=== PATIENT | male | born 1975 | race Caucasian/White ===

== ENCOUNTER 2016-06-17 20:47 | Emergency (ER) | payer OTHER ==
[2016-06-17 21:06] VITALS: BP 128/87; PULSE 86; RESP 20; TEMP 97.7; O2SAT 94
--- NOTE | 2016-06-17 21:15 | EDPHY ---
H & P Stated Complaint: med clear for prison - "kidney pain" Source: Patient Exam Limitations: No limitations - Personal History Current Tetanus Diphtheria and Acellular Pertussis (TDAP): Yes - Medical/Surgical History Hx Asthma: No Hx Chronic Respiratory Disease: No Hx Diabetes: No Hx Cardiac Disease: No Hx Renal Disease: No Hx Cirrhosis: Yes Hx Alcoholism: Yes Hx HIV/AIDS: No Hx Splenectomy or Spleen Trauma: No Other PMH: bipolar, cirrhosis. "kidney problems" - Social History Smoking Status: Never smoked Time Seen by Provider: 06/17/16 20:56 HPI/ROS: CHIEF COMPLAINT: medical clearance for prison HISTORY OF PRESENT ILLNESS: 41-year-old male presents emergency department with police for a medical clearance prior to prison. Patient is complaining of kidney pain. Patient reports he had blood in his urine today. Patient also reports he is suicidal. He was discharged from [facility] today after a 23 day stay. He was discharged with prescriptions for lithium, Cogentin, Wellbutrin. Patient reports his best friend last month and he still feels suicidal. He denies nausea, vomiting or diarrhea, no abdominal pain. Patient denies trauma. Patient denies drug use. REVIEW OF SYSTEMS: A comprehensive 10 point review of systems is otherwise negative aside from elements mentioned in the history of present illness. (Lori Vazquez) - Physical Exam Exam: Physical Exam Gen: Alert and Oriented, agitated HEENT: PERRL, moist mucous membranes NECK: no meningismus CV: regular rate and regular rhythm PULM: CTAB, no wheezes ABDOMEN: Obese, soft, non tender to palpation, BS present BACK: CVA tenderness NEURO: Neurologically grossly intact EXTREMITIES: normal appearing SKIN: no rash or break in skin on exposed skin PSYCH: Agitated, tearful, reports suicidal ideations, denies homicidal ideations, denies auditory and visual hallucinations. (Lori Vazquez) Constitutional: Initial Vital Signs Temperature (C) 36.5 C 06/17/16 21:04 Heart Rate 86 06/17/16 21:04 Respiratory Rate 20 06/17/16 21:04 Blood Pressure 128/87 H 06/17/16 21:04 O2 Sat (%) 94 06/17/16 21:04 O2 Delivery Mode Room Air Allergies/Adverse Reactions: chlordiazepoxide HCl [From Librium] Allergy (Verified 06/17/16 21:03) Penicillins Allergy (Verified 06/17/16 21:03) Home Medications: Medication Instructions Recorded Abilify 06/17/16 Klonopin 06/17/16 Wellbutrin Sr 06/17/16 Medical Decision Making ED Course/Re-evaluation: Urinalysis obtained showing no evidence of blood or infection. Urine tox along with CBC, chemistry panel and ethanol level obtained for the patient to be medically cleared for a psychiatric evaluation. Police officers have spoken with the prison and this psychiatric evaluation will happen in prison. CBC and chemistry panel are unremarkable, he has a mildly elevated white blood cell count which likely is due to stress reaction, drug tox is negative, alcohol level is .265. Patient is medically cleared for prison and for psychiatric evaluation in prison. (Lori Vazquez) Other Provider: The patient wasevaluatedand managed by themidlevel provider. My co- signature indicates that Ihcierra reviewed this chart and I agree with the findings and plan of care asdocumented. I am the secondary supervising physician. (Polina Mtz) - Data Points Laboratory Results: Laboratory Results 06/17/16 21:35 06/17/16 21:35 Departure - Departure Disposition: Home, Routine, Self-Care Clinical Impression: Medical clearance for incarceration, Suicidal ideation Condition: Good Instructions: Suicide Prevention for Adults (ED), Bipolar Disorder (ED) Additional Instructions: Follow-up per mental health recommendations. Take your medications as prescribed.
[2016-06-17 21:39] LABS: COLOR PALE YELLOW; LEUKOCYTE ESTERASE,URINE NEGATIVE (NEGATIVE); NITRITE,URINE NEGATIVE (NEGATIVE)
[2016-06-17 21:45] LABS: % IMMATURE GRANULYOCYTES 0.4 % (0.0-1.1); ABSOLUTE IMMATURE GRANULOCYTES 0.05 10^3/uL (0.00-0.10); ADD DIFF? NO; ADD MORPH? NO; ADD SCAN? NO; ATYPICAL LYMPHOCYTE FLAG 40 (0-99); FRAGMENT RBC FLAG 0 (0-99); HEMATOCRIT 46.6 % (40.0-51.0); LEFT SHIFT FLG 10 (0-99); LIPEMIA HEMOLYSIS FLAG 90 (0-99); MEAN CELL HEMOGLOBIN 30.4 pg (27.9-34.1); MEAN CELL HEMOGLOBIN CONCENTR. 34.3 g/dL (32.4-36.7); MEAN CELL VOLUME 88.4 fL (81.5-99.8); MEAN PLATELET VOLUME 8.9 fL (8.7-11.7); PLATELET CLUMPS FLAG 0 (0-99); PLATELET COUNT 309 10^3/uL (150-400); RED BLOOD CELL COUNT 5.27 10^6/uL (4.40-6.38)
[2016-06-17 21:55] LABS: ANION GAP 13 mEq/L (8-16); CALCIUM 9.2 mg/dL (8.5-10.4); CARBON DIOXIDE 21 mEq/l (22-31); CHLORIDE 108 mEq/L (97-110); CREATININE 0.8 mg/dL (0.7-1.3); ETHANOL SERUM 263 mg/dL (0-10); GLOMERULAR FILTRATION RATE > 60; GLUCOSE 101 mg/dL (70-100); POTASSIUM 4.3 mEq/L (3.5-5.2); SODIUM 142 mEq/L (134-144)
== END 2016-06-17 22:12 | disposition home or self-care (01) ==
DX: Z02.89 Encounter for other administrative examinations (principal); R45.851 Suicidal ideations
CPT/HCPCS: 80305; G0480

== ENCOUNTER 2016-11-08 11:53 | Emergency (ER) | payer OTHER, MEDICAID ==
[2016-11-08 12:06] VITALS: TEMP 97.5; O2SAT 98
--- NOTE | 2016-11-08 12:35 | EDPHY ---
H & P Stated Complaint: Sent from [facility] to detox. Allergic to librium. Last drink 24 hr Time Seen by Provider: 11/08/16 12:31 - Personal History Current Tetanus/Diphtheria Vaccine: Yes Current Tetanus Diphtheria and Acellular Pertussis (TDAP): Yes - Medical/Surgical History Hx Asthma: No Hx Chronic Respiratory Disease: No Hx Diabetes: No Hx Cardiac Disease: No Hx Renal Disease: No Hx Cirrhosis: Yes Hx Alcoholism: Yes Hx HIV/AIDS: No Hx Splenectomy or Spleen Trauma: No Other PMH: bipolar, cirrhosis, chronic knee pain. "kidney problems" - Social History Smoking Status: Never smoked Constitutional: Initial Vital Signs Temperature (C) 36.4 C 11/08/16 12:02 Heart Rate 78 11/08/16 12:02 Respiratory Rate 14 11/08/16 12:02 Blood Pressure 126/87 H 11/08/16 12:02 O2 Sat (%) 98 11/08/16 12:02 O2 Delivery Mode Room Air Allergies/Adverse Reactions: chlordiazepoxide HCl [From Librium] Allergy (Verified 06/17/16 21:03) Penicillins Allergy (Verified 06/17/16 21:03) Home Medications: Medication Instructions Recorded Abilify 06/17/16 Klonopin 06/17/16 Wellbutrin Sr 06/17/16 Medical Decision Making ED Course/Re-evaluation: CHIEF COMPLAINT: Alcohol intoxication. HISTORY OF PRESENT ILLNESS: The patient is a chronic alcoholic living on the [address]. Patient drinks on a daily basis and obtains whatever alcohol is available. [facility] but they do not have any Librium to give him so they sent him here. Patient has had multiple ER visits over the last several years for the same complaint. Patient denies any injuries denies loss of consciousness denies any recent trauma. Patient denies co-ingestion. Patient denies suicidal or homicidal behavior. REVIEW OF SYSTEMS: A 10 point review of systems was performed and is negative with the exception of the elements mentioned in the history of present illness. PHYSICAL EXAM: General Appearance: Alert, well hydrated, appropriate, and non-toxic appearing. Head: Atraumatic without scalp tenderness or obvious injury Eyes: Pupils equal, round, reactive to light and accommodation, EOMI, no trauma , no injection. Ears: Clear bilaterally, no perforation, normal landmarks Nose: Atraumatic, no rhinorrhea, clear. Throat: There is no erythema or exudates, no lesions, normal tonsils, mucus membranes moist. Neck: Supple, 2+ carotid upstroke, nontender, no lymphadenopathy. Respiratory: No retractions, no distress, no wheezes, and no accessory muscle use. Lungs are clear to auscultation bilaterally. Cardiovascular: Regular rate and rhythm, no murmurs, rubs, or gallops. Bilateral carotid, radial, dorsalis pedis, and posterior tibial pulses intact. Good capillary refill all extremities. Gastrointestinal: Abdomen is soft, nontender, non-distended, no masses, no rebound, no guarding, no peritoneal signs. Musculoskeletal: Normal active ROM of all extremities, atraumatic. Neurological: Alert, appropriate, and interactive. The patient has normal DTRs and non-focal cranial nerves, motor, sensory, and cerebellar exam. Skin: No rashes, good turgor, no nodules on palpation. PAST MEDICAL HISTORY: Chronic alcoholism PAST SURGICAL HISTORY: Noncontributory SOCIAL HISTORY: Unemployed, abuses alcohol, smoke cigarettes when he can, uses drugs, DIFFERENTIAL DIAGNOSIS: Alcohol withdrawal, delirium tremens, bends a bit withdrawal, homelessness MEDICAL DECISION MAKING: I serially examined this patient since the patient's arrival here in the emergency department. The patient continues to become more and more sober with each examination. This patient is in no distress. I will [facility] him to [facility] with [facility]iazep[facility]. I serially questioned the patient and the patient's story given initially has not changed. The patient still denies any trauma, any head injury, and any illicit drug use. At this point, the patient is walking the department freely and is clinically sober. We're discharging the patient to the [facility] in stable condition. Departure - Departure Referrals: NONE *PRIMARY CARE P,. [Primary Care Provider] - As per Instructions
[2016-11-08] MEDS ORDERED: LORAZEPAM 1 MG PREPACK#4 BTL TAKEHOME ONE (12:41)
[2016-11-08] MEDS ORDERED: LORazepam 1 MG TAB PO ONE (12:45)
[2016-11-08 13:04] VITALS: BP 127/98; PULSE 99; RESP 18
== END 2016-11-08 13:05 | disposition home or self-care (01) ==
DX: F10.129 Alcohol abuse with intoxication, unspecified (principal)

== ENCOUNTER 2016-11-08 17:11 | Emergency (ER) | payer OTHER, MEDICAID ==
--- NOTE | 2016-11-08 17:16 | EDPHY ---
H & P Time Seen by Provider: 11/08/16 17:12 HPI/ROS: CHIEF COMPLAINT: Alcohol intoxication HISTORY OF PRESENT ILLNESS: This patient is a 41-year-old alcoholic male with history of bipolar disorder who presents to the Emergency Department via EMS for acute alcohol intoxication. He was referred to the ED this morning from the [facility] due to Librium allergy; he was discharged back to the [facility] with pack of Ativan to use for alcohol withdrawal. The bottle is sealed at time of his presentation today. He admits to drinking "a lot" this afternoon and not going to the [facility]. Further history is unobtainable secondary to the patient's intoxicated condition. REVIEW OF SYSTEMS: ROS is limited secondary to the patient's intoxicated condition. Past Medical/Surgical History: Bipolar disorder Alcohol abuse Cirrhosis Chronic knee pain Social History: Alcohol abuse Smoking Status: Never smoked Physical Exam: General Appearance: Somnolent, intoxicated Eyes: Pupils equal and round, dysconjugate gaze Oropharynx: Moist, no abrasion or laceration Neck: Normal inspection Chest: CTA anteriorly CV: RRR Gastrointestinal: Abdomen is soft Neurological: Opens eyes to sternal rub Extremities: Normal inspection Skin: Warm and dry, no rash Neuro: groans to painful stimuli, moves all extremities Constitutional: Initial Vital Signs Temperature (C) 36.5 C 11/08/16 17:16 Heart Rate 108 H 11/08/16 17:16 Respiratory Rate 16 11/08/16 17:16 Blood Pressure 110/84 H 11/08/16 17:16 O2 Sat (%) 94 11/08/16 17:16 O2 Delivery Mode Room Air Allergies/Adverse Reactions: chlordiazepoxide HCl [From Librium] Allergy (Verified 06/17/16 21:03) Penicillins Allergy (Verified 06/17/16 21:03) Home Medications: Medication Instructions Recorded Abilify 06/17/16 Klonopin 06/17/16 Wellbutrin Sr 06/17/16 Medical Decision Making ED Course/Re-evaluation: 41-year-old alcoholic male presents with acute alcohol intoxication. He was seen in the ED this morning; medical record reviewed by myself reveals that the patient was referred here by the [facility] due to his reported Librium allergy. He was given Ativan to take following discharge but did not break the seal on the bottle. At time of exam, the patient is somnolent but opens eyes to sternal rub. He did admit to drinking "a lot" to EMS and to the RN. Will serially examine the patient; when appropriate, he will be discharged back to the [facility]. 8:30pm--ambulated to BR, unsteady gait. Will cont to obs. I serially evaluated the patient here in the ED. He is appropriate to be discharged. PD was present to consider placing this patient on an [facility] hold. However he had a warrant for his arrest so he was taken to assisted. Customary return precautions were discussed with the patient prior to discharge. Differential Diagnosis: Includes though not limited to polysubstance abuse, hypoglycemia, intracranial hemorrhage, intentional overdose Departure - Departure Disposition: Home, Routine, Self-Care Clinical Impression: Alcoholic intoxication Qualifiers: Complication of substance-induced condition: uncomplicated Qualified Code(s): F10.920 - Alcohol use, unspecified with intoxication, uncomplicated Condition: Fair Instructions: Abuse of Alcohol (ED) Additional Instructions: Medically Clear for Prison. Return to the Emergency Department with uncontrollable tremors, vomiting, seizure, confusion, or other serious concerns. Referrals: [facility] [Outside] - As per Instructions Report Scribed for: Delia Perry Report Scribed by: Alondra Griffin Date of Report: 11/08/16 Time of Report: 17:16 Physician Review and Approval Statement: 11/08/16 17:16 Portions of this note were transcribed by a medical office technology instructor. I personally performed a history, physical exam, medical decision making, and confirmed accuracy of information the transcribed note.
[2016-11-08 17:17] VITALS: RESP 16; TEMP 97.7
[2016-11-08 21:07] VITALS: BP 111/82; PULSE 80; O2SAT 95
== END 2016-11-08 21:11 | disposition home or self-care (01) ==
LOC: EDUNIT#
DX: F10.920 Alcohol use, unspecified with intoxication, uncomplicated (principal)